=== PATIENT | male | born 1980 | race African-American/Black ===

== ENCOUNTER 2021-06-17 16:36 | Emergency (ER) | payer OTHER, SELFPAY ==
[2021-06-17 17:49] VITALS: BP 136/77; PULSE 63; RESP 18; TEMP 36; O2SAT 100; BMI 41.8
--- NOTE | 2021-06-17 19:28 | ED_ITS ---
HPI - General Adult General Chief complaint: General Medical Stated complaint: chemical exposure at work Time Seen by Provider: 06/17/21 19:26 Source: patient Mode of arrival: ambulatory Limitations: no limitations History of Present Illness HPI narrative: Patient is a 40-year-old male with no significant has medical history who had a chemical splash in his these while at work today, this happened approximately 15:00 this afternoon. The chemical is called [employer] [id number]. He has states the hose popped off of the container and it splashed up towards his face but he was wearing safety goggles. He removed the goggles and washed his face with water. He denies any eye irritation or redness or skin irritation except for a small ashley on the tip of his nose. Related Data Allergies Allergy/AdvReac Type Severity Reaction Status Date / Time No Known Allergies Allergy Verified 06/17/21 17:53 [facility] Past Medical History Medical History (Updated 06/17/21 @ 19:27 by Jayshree Remy PA-C) Diabetes Social History Social History Advance Directives: No Advance Directives Information Provided: No Physical Exam Vital Signs: Vital Signs: Last Vital Signs Temp 96.8 F 06/17/21 17:49 Pulse 63 06/17/21 17:49 Resp 18 06/17/21 17:49 BP 136/77 06/17/21 17:49 Pulse Ox 100 06/17/21 17:49 Body Mass Index 41.8 Discharge Plan Discharge Clinical Impression: Chemical exposure Patient Disposition: Home, Self-Care Additional Instructions: As discussed, it is important to remove all of your clothing including your hat when you get home and wash them as well as take a shower to remove any residual chemical that might be on your body. The irritation on your nose should improve over the next few days, if it gets worse, please return to the emergency department or follow-up with your primary care doctor.
== END 2021-06-17 19:52 | disposition home or self-care (01) ==
PROVIDERS: Emergency Provider Emergency Medicine
DX: Z77.098 Contact with and (suspected) exposure to other hazardous, chiefly nonmedicinal, chemicals (principal)
CPT/HCPCS: 99283